=== PATIENT | male | born 1960 | race Caucasian/White ===

== ENCOUNTER 2016-11-13 11:48 | Emergency (ER) | payer MEDICARE, OTHER ==
[~2016-11-13] VITALS: Ht 170.2 cm; Wt 101.8 kg
[~2016-11-13 11:48] MED LIST: ASPI-973 PO; ETOD400T PO; LISI10TA PO; METF500T4 PO; MORP15TA PO; NIAC500T21 PO; OMEP20CA11 PO; SIMV40TA5 PO; TRAZ-118 PO
[2016-11-13 11:53] VITALS: BP 139/85; PULSE 88; RESP 16; O2SAT 99
--- NOTE | 2016-11-13 12:02 | ED.REPORT ---
HPI-Abd Pain M 40 and Over Date of Service November 13, 2016 ED Provider: Gilbert Quiroz MD Patient is a 56 year old male with a history of IBS with constipation, diabetes and hypertension who presents to the ED complaining of abdominal pain onset last night. Associated symptoms include nausea, vomiting, dry heaving, diaphoresis and an episode of diarrhea. The patient has nasal congestion but this is due to allergies. Per the patient's , the patient looked pale last night. He denies hematochezia, fever or dysuria. The patient states that he takes Dicyclomine during his episodes and he normally feels better but this time he is still in pain. Nursing Notes Stated Complaint: VOMITING/DRY HEAVES Chief Complaint: Male Abdominal Pain Nursing Notes Reviewed: Yes Allergies: Coded Allergies: No Known Allergies (Verified , 07/05/04) Uncoded Allergies: No Known Allergies (Allergy, Severe, 07/05/04) KETOPROFEN (Generic Allergy) (Allergy, Unknown, Y, 07/04/04) NKA (Allergy, Unknown, 07/04/04) Nonsteroidal Anti-Inflammatory Agts (Allergy, Unknown, 07/04/04) ORUDIS (Allergy, Unknown, 07/04/04) SALICYLATES; NSAIDS; PYRAZOLES (Ingr Allergy) (Allergy, Unknown, Y, 07/04/04 ) Scheduled Aspirin (Aspirin) 81 Mg Tablet 81 MG PO DAILY Etodolac (Etodolac) 400 Mg Tablet 400 MG PO DAILY Lisinopril (Lisinopril) 10 Mg Tablet 10 MG PO DAILY Metformin (Metformin) 500 Mg Tablet 500 MG PO DAILY Omeprazole (Omeprazole) 20 Mg Capsule.dr 20 MG PO DAILY Simvastatin (Simvastatin) 40 Mg Tablet 40 MG PO HS Trazodone (Trazodone) 100 Mg Tablet 100 MG PO HS Scheduled PRN Ondansetron ODT (Zofran ODT) 4 Mg Tablet 4 MG PO Q4H PRN PRN For Nausea Miscellaneous Medications Morphine Sulfate (Morphine Sulfate) 15 Mg Tablet 15 MG PO Niacinamide (Niacin) 500 Mg Tablet 500 MG PO General Time Seen by MD: 12:00 Chief Complaint Abdominal pain Hx Obtained From: Patient, Spouse Arrived By: Walk-in Sudden in Onset?: Yes Onset Occurred: Yesterday Location: : Diffuse Associated with: Reports: Diarrhea, Nausea, Denies: Dysuria, Fever, Hematochezia Recent Healthcare: No recent doctor visit, No recent hospitalization Similar Sx Previous: Yes Past Medical History Past Medical History IBS Reports: Diabetes mellitus, Hypertension Smoking History Current Every Day Smoker, Light Tobacco Smoker Social History Other Social History: Good social support, Ambulatory Status Independent Review of Systems Constitutional: Denies: Fever Respiratory: Denies: Non-productive cough, Shortness of breath GI: Reports: Abdominal pain, Diarrhea, Nausea, Vomiting, Denies: Hematochezia Male: Denies Dysuria Complete sys rev & neg: except as marked. Ears / Nose / Throat: Reports: Nasal congestion Skin: Reports Diaphoresis Physical Exam Initial Vital Signs Vital Signs (First) Date Time Temp Pulse Resp B/P Pulse Ox O2 Delivery O2 Flow Rate FiO2 11/13/16 11:53 36.2 88 16 139/85 99 Room Air Initial VS: Reviewed General/Constitutional: Awake, Alert Respiratory / Chest: Atraumatic, Breath sounds NL, Breath sounds = bilat, No respiratory distress Cardiovascular: Heart rate NL, Regular rhythm, Heart sounds NL, No murmurs Abdomen: Atraumatic, Soft, No guarding, No rebound Tenderness/Guarding/Rebound: Positive: Tender diffuse, Negative: Tender RLQ... Back: Atraumatic, Full range of motion Head / Eyes: Atraumatic, Normocephalic, PERRL, EOMI Skin: Atraumatic, Color NL, No rash, Warm, Dry Neurologic: Oriented X3, Speech NL, No motor deficits, No sensory deficits Psychiatric: Affect NL, Mood NL Interpretation & Diagnostics Lab Results Interpretation Result Diagram: 11/13/16 1236 11/13/16 1236 Test 11/13/16 12:36 11/13/16 12:50 White Blood Count 13.2th/mm3 (3.8-10.1) Red Blood Count 4.85mil/mm3 (4.40-5.80) Hemoglobin 14.6g/dL (13.8-17.2) Hematocrit 42.5% (41.0-50.0) Mean Corpuscular Volume 87.6fL (81-100) Mean Corpuscular Hemoglobin 30.1pg (27.0-35.0) Mean Corpuscular Hemoglobin Concent 34.4% (32.0-37.0) Red Cell Distribution Width 12.6% (12.3-15.4) Platelet Count 242bil/L (150-400) Neutrophils (%) (Auto) 85.3% (40-74) Lymphocytes (%) (Auto) 8.1% (14-46) Monocytes (%) (Auto) 6.1% (4-12) Eosinophils (%) (Auto) 0.2% (0-5) Basophils (%) (Auto) 0.1% (0-3) Sodium Level 138mEq/L (134-144) Potassium Level 4.2mEq/L (3.5-5.2) Chloride Level 97mEq/L (97-108) Carbon Dioxide Level 25mmol/L (18-29) Blood Urea Nitrogen 15mg/dL (6-24) Creatinine 0.68mg/dL (0.76-1.27) Estimat Glomerular Filtration Rate 128mL/min (>59) Glucose Level 148mg/dL (60-99) Calcium Level 9.6mg/dL (8.5-10.1) Magnesium Level 2.1mg/dL (1.6-2.6) Total Bilirubin 0.6mg/dL (0.0-1.2) Aspartate Amino Transf (AST/SGOT) 15U/L (0-50) Alanine Aminotransferase (ALT/SGPT) 9U/L (0-44) Alkaline Phosphatase 82U/L (25-150) Total Protein 7.2g/dL (6.4-8.4) Albumin 4.3g/dL (3.4-5.0) Lipase 15U/L (13-60) Hold Urine Received (Received) Re-Eval/Medical Decision Med Decision/Clinical Course 56-year-old male history of IBS presenting complaining of IBS flare. He reports abdominal cramping and diarrhea times one day. Vital signs stable. Mild diffuse abdominal tenderness initially. Resolved with IV fluids and pain medications. His labs are unremarkable. Patient felt much better and repeat abdominal exam with no tenderness no peritoneal signs. Likely IBS flare. We will discharge home with Zofran. He has morphine at home that he will take for pain. Advised to follow up with primary doctor 1-2 days. Return precautions given. Time of Eval: 14:22 )( Re-Eval Abdomen: Soft, Non-tender, No guarding, No rebound Re-Evaluation/Progress Note: Discussed plan for discharge. The patient understands and agrees to the plan for discharge. All questions were addressed. Counseled Regarding: Diagnosis, Lab results, Need for follow-up, When/why to return to ED Discharge & Departure Primary Impression: IBS (irritable bowel syndrome) Irritable bowel syndrome type: unspecified Qualified Code: K58.9 - Irritable bowel syndrome without diarrhea Additional Impressions: Generalized abdominal pain Vomiting Vomiting type: unspecified Vomiting Intractability: unspecified Nausea presence: with nausea Qualified Code: R11.2 - Nausea with vomiting, unspecified Dry heaves Disposition: Home Vital Signs - All Vital Signs Date Time Temp Pulse Resp B/P Pulse Ox O2 Delivery O2 Flow Rate FiO2 11/13/16 14:47 36.7 64 133/95 98 Room Air 11/13/16 11:53 36.2 88 16 139/85 99 Room Air )( All Prior VS Reviewed: Yes Condition: Stable Patient Instructions: Irritable Bowel Syndrome (ED) Additional Instructions: Thank you for trusting us with your care today. Your labs looked reassuring. You were most likely experiencing an IBS flare up. Take Zofran as needed for nausea. You can continue to use your pain medication as needed for pain. Please follow up with your primary care physician next week. Return to the emergency department if you develop any new or worsening symptoms including fever, vomiting, shortness of breath, chest pain, weakness, tingling or other concerning symptoms. Referrals: [facility] (PCP) [place] Attestation Portions of this note were transcribed by Ambika More. I, Dr. Jose E Mayen personally performed the history, physical exam and medical decision-making; I reviewed and confirmed the accuracy of the information in the transcribed note. Signed by: Hamilton Gamboa, 11/13/16 and 1231 copies to: [facility] Gilbert Quiroz MD November 13, 2016 12:01 Tabitha More November 13, 2016 12:29
[2016-11-13] MEDS ORDERED: Ondansetron 2 mg/mL 2 mL Inj IVPUSH PRN (12:25)
[2016-11-13] MEDS ORDERED: 0.9% Sodium Chloride 1,000 ML IV ONE (12:25)
[2016-11-13 12:42] LABS: BASOPHILS % (AUTO) 0.1 % (0-3); EOSINOPHILS % (AUTO) 0.2 % (0-5); MONOCYTES % (AUTO) 6.1 % (4-12); Mean Corpuscular Hemoglobin 30.1 pg (27.0-35.0); Mean Corpuscular Volume 87.6 fL (81-100); NEUTROPHILS % (AUTO) 85.3 % (40-74); Platelet Count 242 bil/L (150-400)
[2016-11-13 13:04] LABS: Magnesium 2.1 mg/dL (1.6-2.6)
[2016-11-13] MEDS ORDERED: ONDA4TAB9 PO (14:22)
[2016-11-13 14:47] VITALS: BP 133/95; PULSE 64; O2SAT 98
== END 2016-11-13 14:51 | disposition home or self-care (01) ==
LOC: SED 11:48
DX: K58.9 Irritable bowel syndrome, unspecified (principal); R10.84 Generalized abdominal pain; R11.2 Nausea with vomiting, unspecified; E11.9 Type 2 diabetes mellitus without complications; I10 Essential (primary) hypertension; F17.200 Nicotine dependence, unspecified, uncomplicated; Z79.82 Long term (current) use of aspirin; Z79.84 Long term (current) use of oral hypoglycemic drugs
CPT/HCPCS: 36415; 80053; 83690; 83735; 85025; 96361; 96374; 96375; 99284; J2270; J2405; J7030